=== PATIENT | female | born 2000 | race Caucasian/White ===

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

== ENCOUNTER 2022-02-18 11:02 | Inpatient (IN) | payer OTHER ==
[~2022-02-18] VITALS: Ht 157.5 cm; Wt 81.6 kg
[2022-02-18 12:36] LABS: HEMOGLOBIN 10.5 gm/dl (12.3-15.3); RED BLOOD COUNT 3.97 M/UL (4.00-5.10); WHITE BLOOD COUNT 19.7 K/UL (4.5-11.0)
[2022-02-18] MEDS ORDERED: IBUPROFEN600 MG PO (17:24)
[2022-02-18] MEDS ORDERED: DOCUSATE SODIU250 MG PO (17:24)
[2022-02-19 03:24] LABS: HEMOGLOBIN 9.6 gm/dl (12.3-15.3)
[2022-02-21] MEDS ORDERED: DOCUSATE SODIU250 MG PO (14:54)
[2022-02-21] MEDS ORDERED: IBUPROFEN600 MG PO (14:54)
== END 2022-02-21 14:20 | disposition home or self-care (01) | DRG 806 ==
LOC: GENOP 11:02 → OB 16:34
PROVIDERS: ADMIT Obstetrics & Gynecology
PROC: 3E0234Z Introduction of Serum, Toxoid and Vaccine into Muscle, Percutaneous Approach (ICD-10-PCS; principal; 2022-02-18)
PROC: 10E0XZZ Delivery of Products of Conception, External Approach (ICD-10-PCS; 2022-02-18)
PROC: 3E033VJ Introduction of Other Hormone into Peripheral Vein, Percutaneous Approach (ICD-10-PCS; 2022-02-18)
DX: O36.5930 Maternal care for other known or suspected poor fetal growth, third trimester, not applicable or unspecified (principal); O99.324 Drug use complicating childbirth; Z37.0 Single live birth; O42.02 Full-term premature rupture of membranes, onset of labor within 24 hours of rupture; O77.0 Labor and delivery complicated by meconium in amniotic fluid; F15.29 Other stimulant dependence with unspecified stimulant-induced disorder; Z3A.39 39 weeks gestation of pregnancy; Z28.310 Unvaccinated for COVID-19; Z90.89 Acquired absence of other organs; Z88.5 Allergy status to narcotic agent; Z83.3 Family history of diabetes mellitus; Z82.49 Family history of ischemic heart disease and other diseases of the circulatory system; Z82.0 Family history of epilepsy and other diseases of the nervous system; Z83.2 Family history of diseases of the blood and blood-forming organs and certain disorders involving the immune mechanism; Z84.89 Family history of other specified conditions; Z23 Encounter for immunization
CPT/HCPCS: 36415; 80307; 81001; 82800; 85014; 85018; 85025; 90471; 90715; J0456; J2590; J7030